=== PATIENT | male | born 1995 | race Caucasian/White ===

== ENCOUNTER 2021-08-27 17:33 | Emergency (ER) | payer OTHER, SELFPAY ==
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
[2021-08-27 17:40] VITALS: BP 155/87; PULSE 96; RESP 16; TEMP 36.7; O2SAT 98
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
== END 2021-08-27 18:30 | disposition home or self-care (01) ==
PROVIDERS: Emergency Provider Nurse Practitioner
DX: S93.401A Sprain of unspecified ligament of right ankle, initial encounter (principal); S96.911A Strain of unspecified muscle and tendon at ankle and foot level, right foot, initial encounter; V49.40XA Driver injured in collision with unspecified motor vehicles in traffic accident, initial encounter
CPT/HCPCS: 73610; 99213; G0463

== ENCOUNTER 2024-10-24 10:23 | Emergency (ER) | payer OTHER, SELFPAY ==
--- NOTE | 2024-10-24 10:31 | ED.LOWEXIN ---
HPI - Extremity Injury (Lower) General Chief Complaint: Extremity Problem,Nontraumatic Stated Complaint: Right Knee Pain Source: patient Mode of arrival: ambulatory Limitations: no limitations History of Present Illness HPI Narrative: [age] year old male presented for complaint of right posterior knee pain for about 3 days. He states the pain is worse with bending the leg, also endorses pain to the back of the calf when flexing his foot. States his foot felt like pins and needles this morning when he woke up. Denies injury Related Data Home Medications ?Medication ?Instructions ?Recorded ?Confirmed ?Last Taken ?Type No Home Medications 08/27/21 10/24/24 Unknown History Allergies Allergy/AdvReac Type Severity Reaction Status Date / Time No Known Allergies Allergy Verified 10/24/24 10:43 Review of Systems Review of Systems: per HPI All systems reviewed & are unremarkable except as noted in HPI and below PMFSH Past Medical History Medical History No significant medical problems Surgical History Surgical History No significant past surgical history Social History Social History Living arrangements: with family Occupation/Education: occupation Gender identity (if verbalized by the patient): Male Comments At time of signature, I have reviewed and agree with nursing past medical, surgical, social and family history unless otherwise noted. Please see nursing chart for further information. There is no relevant family history pertinent to the presenting complaint Exam Narrative: GENERAL: Well-appearing CHEST: Speaks in full sentences. No respiratory distress. HEART: Regular rate and rhythm. Normal and equal peripheral pulses. EXTREMITIES: RLE has normal strength and sensation, slightly decreased range of motion at knee due to pain with movement. Positive rolando's. Nontender calf with palpation. No edema or ecchymosis. No open wounds, or obvious deformity; alignment normal, pulse palpable and equal bilaterally, skin warm, dry, pink. Capillary refill less than 3 seconds. SKIN: Warm, dry, no rash. NEURO: Alert and oriented x3. PSYCH: Normal mood and affect Course Course Emergency Course: Patient is aware of diagnosis, understands and agrees to treatment plan. Anticipatory guidance given. Patient agrees to follow-up as directed and is aware of reasons to seek care at the emergency department. Portions of this record may have been created with voice recognition software Level of Care: Express Care Visit Vital Signs Vital signs: Vital Signs Temperature 97.9 F 10/24/24 10:38 Pulse Rate 100 10/24/24 10:38 Respiratory Rate 18 10/24/24 10:38 Blood Pressure 146/91 H 10/24/24 10:38 Pulse Oximetry 99 10/24/24 10:38 Oxygen Delivery Room Air 10/24/24 10:38 Temperature 97.9 F 10/24/24 10:38 Pulse Rate 100 10/24/24 10:38 Respiratory Rate 18 10/24/24 10:38 Blood Pressure 146/91 H 10/24/24 10:38 Pulse Oximetry 99 10/24/24 10:38 Oxygen Delivery Room Air 10/24/24 10:38 Reviewed Transfer Transfered to: [facility] Transportation: Other ( Private vehicle) Transfer rationale: Pt is agreeable to transfer. Requests transfer to [facility] via private vehicle. Risks of transportation reviewed with pt including injury, worsening of condition and . v/u. Report called to hospital, spoke with Ramila JAFFE, Dr Nicholas, accepting physician. Pt is in stable condition at time of transfer. Advised to remain NPO and go directly to the hospital. MDM - Extremity Injury (Lower) MDM Narrative Medical decision making narrative: discussed physical exam findings, concern for positive Homans sign. Advised ER transfer to rule out DVT. Verbalized understanding. Differential Diagnosis Differential diagnosis: Likely other (DVT, CHF, PVD, venous insufficiency, medication related, renal failure, gravitational edema, cellulitis) Discharge Plan Discharge Clinical Impression: Acute pain of right lower extremity Patient Disposition: Acute Care Hospital Condition: Stable Instructions: Antibiotic Form Patient Language: Bulgarian Prescriptions: No Action No Home Medications Follow-up/Referrals: PHYSICIAN,PUBLIC RELATIONS ANALYST [Primary Care Provider] - Time of Disposition: 11:18
[2024-10-24 10:38] VITALS: BP 146/91; PULSE 100; RESP 18; TEMP 36.6; O2SAT 99
== END 2024-10-24 11:20 | disposition short-term general hospital (02) ==
PROVIDERS: Emergency Provider Nurse Practitioner Family
DX: M79.661 Pain in right lower leg (principal)
CPT/HCPCS: 99212; G0463